=== PATIENT | female | born 1960 | race Caucasian/White ===

== ENCOUNTER → 2018-03-13 | Outpatient (CLI) | payer BC ==
[~2018-03-13] MED LIST: IOHEXOL 300 MG/ML 100ML VIAL. IV ONE
--- NOTE | 2018-03-13 17:03 | RAD ---
CT study of the abdomen and pelvis with and without contrast-CT urogram INDICATIONS: Hydronephrosis. History of radiation treatment for uterine cancer. COMPARISON: None available. TECHNIQUE: Noncontrast helical CT scanning of abdomen and pelvis was performed. Following IV infusion of 75 cc of Omnipaque 300, helical CT scanning of the abdomen dynamically and repeat helical CT scanning of the entire abdomen and pelvis in delayed fashion was performed. No GI contrast was administered. This may decrease the sensitivity to detect GI tract pathology. CT urogram protocol was utilized. PQRS compliance Statement One or more of the following individualized dose reduction techniques were utilized for this study: 1. Automated exposure control 2. Adjustment of the mA and/or kV according to patient size 3. Use of iterative reconstruction technique FINDINGS: No urinary tract stone or hydronephrosis or hydroureter is evident. A right-sided nephrostomy catheter is in place. The pigtail is seen within the central renal collecting system and pelvis of the right kidney. There is adjacent artifact as a result. There is opacification of the right renal collecting system with contrast preferentially moving into the nephrostomy catheter. There is no opacification of the right ureter as a result. No filling defect of the upper left urinary tract is seen. There is no extravasation of contrast material. There is no perinephric fluid collection present. No renal mass is seen on either side. The right kidney is smaller than the left. The left kidney measures 10.4 cm in length. The right kidney measures 7.6 cm in length. Urinary bladder is not abnormally distended. No intraluminal filling defect or abnormal wall thickening of the urinary bladder is seen. There is a colostomy of the left lower quadrant of the abdomen. There is a hernia of fat around the right lateral edge of the colostomy. Colonic diverticulosis is seen without diverticulitis. No obstructive bowel pattern is evident. No free air or free fluid or mesenteric edema is seen. There are 2 small cysts of the liver adjacent to the gallbladder fossa. Spleen is not enlarged. Pancreas and gallbladder are normal. No extra hepatic biliary ductal dilatation is seen. No right adrenal mass is seen. There is a small left adrenal adenoma. No focal aneurysmal dilatation of the abdominal aorta is seen. No enlarged abdominal or pelvic lymphadenopathy is evident. No lung base consolidation is evident. There is a tiny 2 mm lung nodule of the inferior aspect of the right middle lobe. No osteolytic process is seen. IMPRESSION: Right nephrostomy catheter in place. No hydronephrosis or hydroureter is evident. No urinary tract stone is seen. No renal mass is seen. Right renal atrophy. Left lower quadrant colostomy. Hernia of fat adjacent to the colostomy. Colonic diverticulosis without diverticulitis. 2 mm lung nodule of the right middle lobe. If there is a high risk for lung malignancy such as a smoking history, then a follow-up noncontrast chest CT in 12 months is recommended as per Fleischner guidelines. If at low risk, no further follow-up is needed. Electronically signed by: Can Luu MD (03/13/2018 5:00 PM) [id number]
== END | disposition home or self-care (01) ==
LOC: CT 09:12
PROVIDERS: ATTEND Urology
DX: N13.1 Hydronephrosis with ureteral stricture, not elsewhere classified (principal); K57.30 Diverticulosis of large intestine without perforation or abscess without bleeding; N26.1 Atrophy of kidney (terminal); D35.02 Benign neoplasm of left adrenal gland; K76.89 Other specified diseases of liver; R91.1 Solitary pulmonary nodule; Z92.3 Personal history of irradiation; Z85.42 Personal history of malignant neoplasm of other parts of uterus
CPT/HCPCS: 74178; Q9967

== ENCOUNTER → 2018-06-25 | Outpatient (CLI) | payer BC, MEDICAID ==
--- NOTE | 2018-06-25 15:52 | KCIC ---
Renal ultrasound 06/25/2018 INDICATION: Right hydronephrosis. Right-sided stent placement March 25, 2018. History of radiation for uterine cancer. COMPARISON STUDY: CT of the abdomen and pelvis March 13, 2018 Discussion: Appears to be a stent is seen in the right renal collecting system. Mild dilatation of the right renal pelvis is noted. The right kidney is atrophic in appearance measuring 9 cm in length,. Areas of the right kidney is partially obscured. No other focal renal lesions are identified on the right. The left kidney is normal in appearance measuring 11 cm in length. The bladder is poorly visualized secondary to probable decompressed state. What may be the distal end of the double-J ureteral stent noted in the proximity of the bladder. This is poorly visualized. IMPRESSION: 1. Probable right double-J ureteral stent noted with mild residual hydronephrosis/pelvic dilatation on the right 2. Atrophic right kidney, similar findings noted on prior study 3. Unremarkable sonographic appearance of the left kidney Electronically signed by: Martinez Merrill MD (06/25/2018 3:50 PM) [id number]
== END | disposition home or self-care (01) ==
LOC: KCIC US 14:13
PROVIDERS: ATTEND Urology
DX: N13.1 Hydronephrosis with ureteral stricture, not elsewhere classified (principal); N26.1 Atrophy of kidney (terminal); Z92.3 Personal history of irradiation; Z85.42 Personal history of malignant neoplasm of other parts of uterus
CPT/HCPCS: 76770

== ENCOUNTER → 2018-07-03 | Outpatient (CLI) | payer BC, OTHER ==
[~2018-07-03] MED LIST changes: +FUROSEMIDE 40 MG/4 ML VIAL. IVP ONE; -IOHEXOL 300 MG/ML 100ML VIAL. IV ONE
--- NOTE | 2018-07-03 11:12 | RAD ---
Radionuclide renal scan, 07/03/2018: HISTORY: Back and flank pain, right ureteral stent Imaging of the kidneys was performed following IV injection of 5 mCi of technetium 99m MAG3. 40 mg of Lasix was administered IV approximately 18 minutes into the study. The dynamic flow study demonstrates markedly decreased perfusion of the right kidney compared to the left. On the left, maximal renal activity occurs at 4 minutes. There is washout of activity from the left renal pelvis. There is mild parenchymal retention on the left on the delayed images. The right kidney is small. Peak activity in the right renal collecting system occurred at 5 minutes. There is slow partial washout of activity from the right renal collecting system on the delayed images. The findings suggest partial obstruction. Normal bladder activity is evident. IMPRESSION: 1. Atrophic right kidney demonstrating partial obstruction. 2. No evidence of left ureteral obstruction. 3. Mild parenchymal retention on the left suggesting medical renal disease. Electronically signed by: García Diaz MD (07/03/2018 11:09 AM) [facility] [place]
== END | disposition home or self-care (01) ==
LOC: NM 08:30
PROVIDERS: ATTEND Urology
DX: N26.1 Atrophy of kidney (terminal) (principal)
CPT/HCPCS: 78708; 96374; 96375; A9562; J1940

== ENCOUNTER → 2018-08-23 | Outpatient (CLI) | payer BC, OTHER ==
--- NOTE | 2018-08-27 09:30 | RAD ---
Radionuclide renal scan with Lasix, 08/23/2018: HISTORY: Check right renal function, hydronephrosis Imaging of the kidneys was performed following IV injection of 10 mCi of technetium 99m MAG3. 40 mg of Lasix was administered IV approximately 20 minutes into the study. The dynamic flow study demonstrates prompt perfusion of the left kidney. There is prompt uptake of the radionuclide by the left kidney. There is good parenchymal washout of activity from the left kidney. There is transient prominence of left renal collecting system with diminishing activity on the latter images. The right kidney is small with decreased perfusion relative to the left. There is decreased uptake of the radionuclide by the right kidney. Approximately 10 percent of the overall radionuclide uptake occurs on the right and 90 percent on the left. Peak activity on the right occurs at 22 minutes. There is increasing low level uptake in the right renal pelvis throughout the exam. The exam was terminated at approximately 36 minutes due to patient discomfort. IMPRESSION: 1. Atrophic, poorly functioning right kidney. 2. No significant left renal abnormality is detected Electronically signed by: García Diaz MD (08/27/2018 9:27 AM) [facility]
== END | disposition home or self-care (01) ==
LOC: NM 08:12
PROVIDERS: ATTEND Urology
DX: N13.1 Hydronephrosis with ureteral stricture, not elsewhere classified (principal); Z85.42 Personal history of malignant neoplasm of other parts of uterus
CPT/HCPCS: 78708; 96374; A9562; J1940; 96375

== ENCOUNTER → 2020-07-16 | Outpatient (CLI) | payer BC ==
[2020-07-16 10:20] LABS: BASO # 0.1 x10^3/uL (0.0-0.2); BASO % 1 % (0-3); EOS # 0.2 x10^3/uL (0.0-0.7); EOS % 3 % (0-3); HEMATOCRIT 36.8 % (36.0-47.0); HEMOGLOBIN 12.5 g/dL (12.0-15.5); LYMPH # 1.3 x10^3/uL (1.0-4.8); LYMPH % 22 % (24-48); MEAN CORPUSCULAR HEMOGLOBIN 33 pg (25-35); MEAN CORPUSCULAR HGB CONC 34 g/dL (31-37); MEAN CORPUSCULAR VOLUME 96 fL (79-100); MONO # 0.5 x10^3/uL (0.0-1.1); MONO % 8 % (0-9); NEUT # 3.9 x10^3/uL (1.8-7.7); NEUT % 66 % (31-73); PLATELET COUNT 216 x10^3/uL (140-400); RED BLOOD COUNT 3.84 x10^6/uL (3.50-5.40); RED CELL DISTRIBUTION WIDTH 12.7 % (11.5-14.5); WHITE BLOOD COUNT 5.9 x10^3/uL (4.0-11.0)
[2020-07-16 10:37] LABS: ALBUMIN 3.2 g/dL (3.4-5.0); CALCIUM 6.3 mg/dL (8.5-10.1); CREATININE 1.4 mg/dL (0.6-1.0); GFR 38.4; PHOSPHORUS 3.7 mg/dL (2.6-4.7); POTASSIUM 4.1 mmol/L (3.5-5.1)
[2020-07-17 01:13] LABS: CALCIUM PTH 6.8 mg/dL (8.7-10.3); CREATININE PTH 1.35 mg/dL (0.57-1.00); PHOSPHORUS PTH 3.6 mg/dL (3.0-4.3); PTH INTACT 131 pg/mL (15-65)
== END ==
LOC: LAB 10:05
PROVIDERS: ATTEND Internal Medicine Nephrology
DX: N18.31 Chronic kidney disease, stage 3a (principal)
CPT/HCPCS: 36415; 80069; 83970; 85025